=== PATIENT | male | born 1975 | race Caucasian/White ===

== ENCOUNTER 2022-04-17 05:44 | Outpatient (CLI) | payer MEDICAID ==
[~2022-04-17] VITALS: Ht 175.3 cm; Wt 87.1 kg
[2022-04-18] MEDS ORDERED: LISI1TAB48 PO (15:14)
[2022-04-18] MEDS ORDERED: SILD50TA PO (15:14)
== END 2022-04-18 15:16 | disposition home or self-care (01) ==
LOC: PREOP 05:44
PROVIDERS: ATTEND Surgery
DX: Z01.818 Encounter for other preprocedural examination (principal)

== ENCOUNTER 2022-04-24 10:02 | Day surgery (SDC) | payer MEDICAID ==
[~2022-04-24] VITALS: Ht 175 cm; Wt 87.1 kg
[~2022-04-24 10:02] MED LIST: LISI1TAB48 PO; SILD50TA PO
[2022-04-24] MEDS ORDERED: LACTATED RINGERS 1,000 ML IV STA (10:11)
[2022-04-24 10:15] VITALS: BP 150/101
[2022-04-24] MEDS ORDERED: PROPOFOL INJECTION 50 ML IV ONE ×2 (12:00→13:34)
[2022-04-24] MEDS ORDERED: LACTATED RINGERS 1,000 ML IV ONE (12:56)
--- NOTE | 2022-04-24 13:55 | Anesthesia-General Post-Op ---
MAC Patient Condition Mental Status/LOC: Same as Preop Cardiovascular: Satisfactory Nausea/Vomiting: Absent Respiratory: Satisfactory Pain: Controlled Complications: Absent Post Op Complications Complications None Follow Up Care/Instructions Patient Instructions None needed. Anesthesiology Discharge Order Discharge Order Patient is doing well, no complaints, stable vital signs, no apparent adverse anesthesia problems. No complications reported per nursing. LADY THOMPSON CRNA Apr 24, 2022 13:55
--- NOTE | 2022-04-24 13:56 | Discharge Inst-Simple/Standard ---
Discharge Inst-Standard Patient Instructions/Follow Up Plan of Care/Instructions/FU: Follow-up with Dr. Martines in 2 weeks Activity as Tolerated: Yes Discharge Diet: No Restrictions AMILCAR MARTINES DO Apr 24, 2022 13:56
[2022-04-24 13:58] VITALS: BP 122/65
[2022-04-24 14:03] VITALS: BP 120/65
[2022-04-24 14:05] VITALS: BP 150/91
--- NOTE | 2022-04-25 00:53 | OPERATIVE REPORT ---
DATE OF SERVICE: 04/24/2022 PREOPERATIVE DIAGNOSIS: Screening colonoscopy. POSTOPERATIVE DIAGNOSIS: Colon polyps. PROCEDURE: Colonoscopy with hot biopsy and polypectomy x5. SURGEON: Amilcar Martines DO. ANESTHESIA: Per ENTRY LEVEL BUSINESS ANALYST. ESTIMATED BLOOD LOSS: None. COMPLICATIONS: None. INDICATIONS: The patient is a 47-year-old male, needing screening colonoscopy. He understands the risks and benefits of procedure and wished to proceed. Consent was signed and in chart. DESCRIPTION OF PROCEDURE: The patient was taken to endoscopy suite, placed in left lateral recumbent position. Timeout was performed. Digital rectal exam was performed. No palpable polyps, masses, or ulcerations. Scope was inserted in the rectum and advanced all the way to cecum with minimal difficulty. Prep was adequate with irrigation and suction. Scope was slowly retracted back. No polyps, masses, or ulceration in the cecum. In the ascending colon just near the ileocecal valve, a small cluster of polyp was present. Hot biopsy polypectomy was performed and also some fulguration to the area. Scope was then continuously retracted back. No polyps, masses or ulcerations visualized within the remainder of the ascending and transverse colon along with the descending colon. In the sigmoid colon, three polyps were present, which hot biopsy polypectomies were performed. Scope was then continually retracted back at the rectosigmoid junction, there was another polyp was present, which hot biopsy polypectomy was performed. The scope was then continually retracted back into the rectum was also retroflexed noting no other pathology. Scope was returned to its normal position, slowly withdrawn until completely removed. The patient tolerated the procedure well without complications, taken to recovery room in stable condition. RECOMMENDATIONS: The patient will need repeat colonoscopy in 6 months to make sure the polyp in the ascending colon has been eradicated. He will follow up in 2 weeks, discussed pathology results and make plans. Job ID: [id number] DocumentID: [id number] Dictated Date: 04/24/2022 13:58:26 Metrology Technician Date: 04/25/2022 00:50:00 Dictated By: AMILCAR MARTINES DO
== END 2022-04-24 14:54 | disposition home or self-care (01) ==
LOC: ENDO 10:02
PROVIDERS: ATTEND Surgery
DX: Z12.11 Encounter for screening for malignant neoplasm of colon (principal); D12.2 Benign neoplasm of ascending colon; K63.5 Polyp of colon; Z28.310 Unvaccinated for COVID-19; Z85.828 Personal history of other malignant neoplasm of skin; F17.210 Nicotine dependence, cigarettes, uncomplicated
CPT/HCPCS: 88305

== ENCOUNTER 2022-11-28 05:37 | Outpatient (CLI) | payer MEDICAID ==
[~2022-11-28] VITALS: Ht 175.3 cm; Wt 87.1 kg
[2022-11-29] MEDS ORDERED: ATOR20TA66 PO (12:44)
== END 2022-11-29 12:53 | disposition home or self-care (01) ==
LOC: PREOP 05:37
PROVIDERS: ATTEND Surgery
DX: Z01.818 Encounter for other preprocedural examination (principal)

== ENCOUNTER 2022-12-11 09:01 | Day surgery (SDC) | payer MEDICAID ==
[~2022-12-11] VITALS: Ht 175.3 cm; Wt 87.1 kg
[~2022-12-11 09:01] MED LIST changes: +ATOR20TA66 PO
[2022-12-11] MEDS ORDERED: LACTATED RINGERS 1,000 ML IV STA (09:06)
[2022-12-11 09:18] VITALS: BP 135/91
[2022-12-11] MEDS ORDERED: PROPOFOL INJECTION 50 ML IV ONE ×2 (09:39→09:58)
--- NOTE | 2022-12-11 10:15 | Anesthesia-General Post-Op ---
MAC Patient Condition Mental Status/LOC: Same as Preop Cardiovascular: Satisfactory Nausea/Vomiting: Absent Respiratory: Satisfactory Pain: Controlled Complications: Absent Post Op Complications Complications None Follow Up Care/Instructions Patient Instructions None needed. Anesthesiology Discharge Order Discharge Order Patient is doing well, no complaints, stable vital signs, no apparent adverse anesthesia problems. No complications reported per nursing. LADY THOMPSON CRNA Dec 11, 2022 10:15
--- NOTE | 2022-12-11 10:18 | Progress Note-Post Operative ---
Post-Operative Progess Note Surgeon (s)/Rehabilitation Physician (s) Surgeon AMILCAR PARKER DO Rehabilitation Physician: None Pre-Operative Diagnosis History of Polyps Post-Operative Diagnosis Colon polyps Procedure & Operative Findings Date of Procedure 12/11/22 Procedure Performed/Findings Colonoscopy with hot biopsy polypectomyx6 Anesthesia Type Per BASS STRING WINDER Estimated Blood Loss Estimated blood loss (mL): None Specimens/Packing Specimens Removed Colon Polyps AMILCAR PARKER DO Dec 11, 2022 10:18
[2022-12-11 10:20] VITALS: BP 114/72
--- NOTE | 2022-12-11 10:21 | Discharge Inst-Simple/Standard ---
Discharge Inst-Standard Patient Instructions/Follow Up Plan of Care/Instructions/FU: Bobbi two weeks Activity as Tolerated: Yes Discharge Diet: Regular Diet AMILCAR PARKER DO Dec 11, 2022 10:21
[2022-12-11 10:25] VITALS: BP 121/77
[2022-12-11 10:30] VITALS: BP 124/79
[2022-12-11 10:50] VITALS: BP 120/82
--- NOTE | 2022-12-11 16:53 | OPERATIVE REPORT ---
DATE OF SERVICE: 12/11/2022 PREOPERATIVE DIAGNOSIS: History of polyps. POSTOPERATIVE DIAGNOSES: History of colon polyps. PROCEDURE: Colonoscopy with hot biopsy polypectomy x6. SURGEON: Amilcar Martines DO ANESTHESIA: Per INDUSTRIAL FABRIC CUTTER. ESTIMATED BLOOD LOSS: None. COMPLICATIONS: None. INDICATIONS: The patient is a 47-year-old male with history of polyps. He understands risks and benefits of procedure and wished to proceed. Consent was signed in chart. DESCRIPTION OF PROCEDURE: The patient was taken to endoscopy suite, placed in left lateral recumbent position. Timeout was performed. Digital rectal exam was performed. No palpable polyps, masses or ulcerations. Scope was inserted in the rectum, advanced all the way to the cecum with minimal difficulty. Prep was adequate. Scope was slowly retracted back. No polyps, masses or ulcerations in the cecum. In the ileocecal valve, 4 polyps were present in this area. Hot biopsy polypectomy was performed. Scope was then continuously retracted back. No polyps, masses or ulcerations in the ascending, transverse, or descending colon. The sigmoid colon had 2 small polyps, which hot biopsy polypectomy was performed. Scope was then continuously retracted back into the rectum where it was also retroflexed, noting no other pathology. Scope was returned to its normal position, slowly withdrawn until completely removed. The patient tolerated the procedure well without complications, taken to recovery room in stable condition. RECOMMENDATIONS: The patient will have repeat colonoscopy in 3 years. Any issues before that, he will be seen at that time. He will follow up in 2 weeks to discuss pathology results. Job ID: [id number] DocumentID: [id number] Dictated Date: 12/11/2022 10:19:53 Safety Net Maker Date: 12/11/2022 16:51:00 Dictated By: AMILCAR MARTINES DO
== END 2022-12-11 10:53 | disposition home or self-care (01) ==
LOC: ENDO 09:01
PROVIDERS: ATTEND Surgery
DX: D12.0 Benign neoplasm of cecum (principal); K63.5 Polyp of colon; F17.210 Nicotine dependence, cigarettes, uncomplicated; Z85.828 Personal history of other malignant neoplasm of skin; Z28.310 Unvaccinated for COVID-19
CPT/HCPCS: 88305

== ENCOUNTER 2023-04-15 14:26 | Emergency (ER) | payer MEDICAID ==
[~2023-04-15] VITALS: Ht 175 cm; Wt 91.0 kg
[2023-04-15 14:39] LABS: BASOPHILS # (AUTO) 0.1 10^3/uL (0.0-0.1); BASOPHILS % (AUTO) 1 % (0-10); EOSINOPHILS # (AUTO) 0.4 10^3/uL (0.0-0.3); EOSINOPHILS % (AUTO) 4 % (0-10); HEMATOCRIT 44 % (40-54); HEMOGLOBIN 14.7 g/dL (13.3-17.7); LYMPHOCYTES # (AUTO) 1.5 10^3/uL (1.0-4.0); LYMPHOCYTES % (AUTO) 15 % (12-44); MEAN CORPUSCULAR HEMOGLOBIN 30 pg (25-34); MEAN CORPUSCULAR HGB CONC 33 g/dL (32-36); MEAN CORPUSCULAR VOLUME 91 fL (80-99); MEAN PLATELET VOLUME 10.3 fL (9.0-12.2); MONOCYTES % (AUTO) 10 % (0-12); NEUTROPHILS # (AUTO) 6.7 10^3/uL (1.8-7.8); NEUTROPHILS % (AUTO) 68 % (42-75); PLATELET COUNT 292 10^3/uL (130-400); WHITE BLOOD COUNT 9.9 10^3/uL (4.3-11.0)
--- NOTE | 2023-04-15 14:51 | Diagnostic Imaging Report ---
INDICATION: Worsening chest pain and dyspnea. TECHNIQUE: A single AP view of the chest was obtained. COMPARISON: No previous study is available for comparison at this time. FINDINGS: The heart size and pulmonary vasculature are within normal limits, and the lungs are clear bilaterally. IMPRESSION: Unremarkable chest. Dictated by: Dictated on workstation # [id number]
[2023-04-15 14:56] LABS: ALBUMIN 4.2 GM/DL (3.2-4.5); CHLORIDE 98 MMOL/L (98-107); POTASSIUM 3.1 MMOL/L (3.6-5.0); SODIUM 137 MMOL/L (135-145)
[2023-04-15 14:57] LABS: CALCIUM 9.1 MG/DL (8.5-10.1)
[2023-04-15 14:58] LABS: GLUCOSE 141 MG/DL (70-105)
[2023-04-15] MEDS ORDERED: morphine INJ 10 MG/ML 1ML (SYR OR VIAL) IVP STA (14:58)
[2023-04-15 14:59] LABS: TOTAL PROTEIN 7.5 GM/DL (6.4-8.2)
[2023-04-15 15:00] LABS: BILIRUBIN,TOTAL 0.4 MG/DL (0.1-1.0); CARBON DIOXIDE 28 MMOL/L (21-32)
[2023-04-15 15:02] LABS: ALKALINE PHOSPHATASE 65 U/L (40-136); CREATININE SERUM 1.78 MG/DL (0.60-1.30); GFR ESTIMATED 47; INR 0.9 (0.8-1.4)
[2023-04-15 15:03] LABS: BUN/CREATININE RATIO 13
--- NOTE | 2023-04-15 15:04 | ED Chest Pain ---
General Chief Complaint: Chest Pain Stated Complaint: CHEST PAINS Nursing Triage Note: PT TO RM 9 BY [facility] FROM [facility] WITH C/O CP X3 DAYS AND WORSENED TODAY WHEN CUTTING WOOD. PT STATES HE ALSO GOT SOB AND SWEATING Source: patient Exam Limitations: no limitations (SHELLEY GARNER APRN) History of Present Illness Date Seen by Provider: Apr 15, 2023 Time Seen by Provider: 14:28 Initial Comments 48-year-old male presents to the ER via EMS from [facility] walk-in clinic with complaint of chest pain for the last 3 days. He reports that it has been a constant ache. States that he woke up this morning without chest pain, that it started around 10 AM when he was cutting wood. He states that the other episodes of chest pain were not related to physical exertion. He complains of the pain in his left lower chest. Denies any radiation of the pain. Does report sweating with the pain. Denies shortness of air or nausea or vomiting with the pain. Past medical history includes hypertension. He currently takes lisinopril/hydrochlorothiazide, and amlodipine. He was started on Wellbutrin 3 days ago for smoking cessation. States that the chest pain started when he started the Wellbutrin. (SHELLEY GARNER APRN) Allergies and Home Medications Allergies Coded Allergies: No Known Drug Allergies (Unverified , 04/18/22) Patient Home Medication List Home Medication List Reviewed: Yes (SHELLEY GARNER APRN) Atorvastatin Calcium (Atorvastatin Calcium) 20 Mg Tablet, 20 MG PO DAILY, (Reported) Entered as Reported by: AMPARO CLAY on 11/29/22 1244 Lisinopril/Hydrochlorothiazide (Lisinopril-Hctz 20-25 mg Tab) 20 Mg-25 Mg Tablet, 1 EACH PO DAILY, (Reported) Entered as Reported by: RJ VÁZQUEZ on 04/18/22 151 Sildenafil Citrate (Viagra) 50 Mg Tablet, 50 MG PO UD, (Reported) Entered as Reported by: RJ VÁZQUEZ on 04/18/22 151 Review of Systems Review of Systems Constitutional: see HPI (SHELLEY GARNER APRN) Past Oonufgp-Byjbsn-Jaghsb Hx Patient Social History Tobacco Use?: Yes Tobacco type used: Cigarettes Substance use?: Yes Substance type: Marijuana Alcohol Use?: No Pt feels they are or have been: No (PATSYSHELLEY CARLSON APRN) Immunizations Up To Date Influenza Vaccine Up-to-Date: No; Not Current First/Initial COVID19 Vaccinat: NO Second COVID19 Vaccination Cristobal: NO Third COVID19 Vaccination Date: NO (PATSYSHELLEY CARLSON APRN) Seasonal Allergies Seasonal Allergies: Yes (PATSYSHELLEY CARLSON APRN) Past Medical History Surgery/Hospitalization HX: HTN 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 Surgeries: Yes (BX NOSE SQUAMOUS CELL) Respiratory: No Cardiac: Yes High Cholesterol, Hypertension Neurological: No Genitourinary: No Gastrointestinal: Yes Polyps Musculoskeletal: No Endocrine: No HEENT: No Cancer: Yes (NASAL ) What Type of Treatment Did You: Radiation, Surgical Intervention Psychosocial: No Integumentary: Yes Psoriasis Blood Disorders: No (SHELLEY GARNER APRN) Physical Exam Vital Signs Vital Signs - First Documented 04/15/23 16:43 Pulse 76 Resp 16 B/P (MAP) 115/70 Pulse Ox 98 (RANI VALERIO MD) Vital Signs Capillary Refill : (PATSYSHELLEY CARLSON APRN) Height, Weight, BMI Height: '" Weight: lbs. oz. kg; 29.00 BMI Method: General Appearance: No Apparent Distress, WD/WN Neck: Normal Inspection, Supple Respiratory: Chest Non Tender, Lungs Clear, Normal Breath Sounds, No Accessory Muscle Use, No Respiratory Distress Cardiovascular: Regular Rate, Rhythm Extremity: Normal Inspection, Normal Range of Motion Neurologic/Psychiatric: Alert, No Motor/Sensory Deficits Skin: Normal Color, Warm/Dry (PATSYSHELLEY CARLSON APRN) Progress/Results/Core Measures Results/Orders Lab Results Laboratory Tests Test 04/15/23 14:30 Range/Units White Blood Count 9.9 4.3-11.0 10^3/uL Red Blood Count 4.83 4.30-5.52 10^6/uL Hemoglobin 14.7 13.3-17.7 g/dL Hematocrit 44 40-54 % Mean Corpuscular Volume 91 80-99 fL Mean Corpuscular Hemoglobin 30 25-34 pg Mean Corpuscular Hemoglobin Concent 33 32-36 g/dL Red Cell Distribution Width 12.7 10.0-14.5 % Platelet Count 292 130-400 10^3/uL Mean Platelet Volume 10.3 9.0-12.2 fL Immature Granulocyte % (Auto) 1 % Neutrophils (%) (Auto) 68 42-75 % Lymphocytes (%) (Auto) 15 12-44 % Monocytes (%) (Auto) 10 0-12 % Eosinophils (%) (Auto) 4 0-10 % Basophils (%) (Auto) 1 0-10 % Neutrophils # (Auto) 6.7 1.8-7.8 10^3/uL Lymphocytes # (Auto) 1.5 1.0-4.0 10^3/uL Monocytes # (Auto) 1.0 0.0-1.0 10^3/uL Eosinophils # (Auto) 0.4 H 0.0-0.3 10^3/uL Basophils # (Auto) 0.1 0.0-0.1 10^3/uL Immature Granulocyte # (Auto) 0.1 0.0-0.1 10^3/uL Prothrombin Time 13.0 12.2-14.7 SEC INR Comment 0.9 0.8-1.4 Activated Partial Thromboplast Time 29 24-35 SEC Sodium Level 137 135-145 MMOL/L Potassium Level 3.1 L 3.6-5.0 MMOL/L Chloride Level 98 98-107 MMOL/L Carbon Dioxide Level 28 21-32 MMOL/L Anion Gap 11 5-14 MMOL/L Blood Urea Nitrogen 24 H 7-18 MG/DL Creatinine 1.78 H 0.60-1.30 MG/DL Estimat Glomerular Filtration Rate 47 BUN/Creatinine Ratio 13 Glucose Level 141 H 70-105 MG/DL Calcium Level 9.1 8.5-10.1 MG/DL Corrected Calcium 8.9 8.5-10.1 MG/DL Magnesium Level 2.0 1.6-2.4 MG/DL Total Bilirubin 0.4 0.1-1.0 MG/DL Aspartate Amino Transf (AST/SGOT) 17 5-34 U/L Alanine Aminotransferase (ALT/SGPT) 15 0-55 U/L Alkaline Phosphatase 65 40-136 U/L Troponin I < 0.028 <0.028 NG/ML Total Protein 7.5 6.4-8.2 GM/DL Albumin 4.2 3.2-4.5 GM/DL (RANI VALERIO MD) Vital Signs/I&O 04/15/23 16:43 Pulse 76 Resp 16 B/P (MAP) 115/70 Pulse Ox 98 04/15/23 23:59 Intake Total 1500 ml Balance 1500 ml (RANI VALERIO MD) Progress Progress Note : Progress Note Patient seen and evaluated, resting comfortably in bed, no acute distress. Based on exam and symptoms, cardiac workup initiated including CBC, CMP, troponin, magnesium, coags, EKG, chest x-ray. Morphine ordered for pain. Patient already had 4 baby aspirins which were given by [facility]. 1529 Labs, EKG, and chest x-ray reviewed. CBC grossly normal. CMP shows de creased potassium 3.1. BUN elevated 24, creatinine elevated 1.78, GFR decreased 47, glucose slightly elevated 141. Magnesium normal. Troponin negative. This troponin was drawn approximately 4 hours after start of chest pain. Coags negative. Chest x-ray shows no acute cardiopulmonary process. Results discussed with patient. Patient denies known history of kidney disease. 1 L of IV fluids ordered. Patient already received 500 mL IV fluids by EMS. Decreased kidney function could be related to dehydration. Chest pain could be related to dehydration or Wellbutrin. Adverse reactions of Wellbutrin include chest pain, sweating, dizziness. Potassium ordered for decreased potassium as well. 1630 IV fluids completed. Patient is stable for discharge. Discharge instructions and return precautions provided. Instructed to follow-up with primary care provider this week for a redraw of his kidney function and to also discuss his Wellbutrin which may be the cause of his symptoms. (SHELLEY GARNER APRN) Initial ECG Impression Date: Apr 15, 2023 Initial ECG Impression Time: 14:34 Initial ECG Rate: 86 Initial ECG Rhythm: Normal Sinus Initial ECG Intervals: Normal Initial ECG Impression: Nonspecific Changes Initial ECG Comparisson: No Previous ECG Available Comment Q wave in lead II, 3, aVF, T wave inversion in lead III, and lead aVF, no ST elevation or depression. EKG reviewed by Dr. Davenport as well, he did not find evidence of STEMI. (SHELLEY GARNER APRN) Diagnostic Imaging Diagonstic Imaging: Xray Plain Films/CT/US/NM/MRI: chest Comments [facility] [place], [place] NAME: FRIEND,GIRMA [facility] REC#: [id number] PT STATUS: REG ER : 1975 PHYSICIAN: SHELLEY GARNER APRN ADMIT DATE: 04/15/23/ER Draft Date of Exam:04/15/23 CHEST 1 VIEW, AP/PA ONLY INDICATION: Worsening chest pain and dyspnea. TECHNIQUE: A single AP view of the chest was obtained. COMPARISON: No previous study is available for comparison at this time. FINDINGS: The heart size and pulmonary vasculature are within normal limits, and the lungs are clear bilaterally. IMPRESSION: Unremarkable chest. Dictated on workstation # [id number] Dict: 04/15/23 1448 Trans: 04/15/23 1451 [id number] Interpreted by: CONCEPCIÓN MEDINA MD Electronically signed by: (SHELLEY GARNER APRN) Departure Impression Primary Impression: Chest pain Additional Impressions: Dehydration Hypokalemia Disposition: 01 HOME, SELF-CARE Condition: Stable Departure-Patient Inst. Decision time for Depature: 16:30 (SHELLEY GARNER APRN) Referrals: [facility] [place]) Primary Care Physician Patient Instructions: Chest Pain That Is Not Caused by the Heart (DC) Add. Discharge Instructions: Increase potassium in your diet. Make sure you are drinking plenty of water. Follow-up with your primary care provider this week, call them tomorrow to schedule a follow-up appointment. They need to reevaluate your kidney function. Discuss with your primary care provider your Wellbutrin, this may be the cause of your symptoms. Return for severe chest pain, severe shortness of breath, or any other new, concerning, or worsening symptoms. All discharge instructions reviewed with patient and/or family. Voiced un derstanding. ATTENDING PHYSICIAN NOTE: I was physically present as attending physician in the emergency department during the care of this patient, but I was not directly involved in the decision making or delivery of care for this patient. (RANI VALERIO MD) Copy Copies To 1: [facility]/SHELLEY [place] APRN Apr 15, 2023 15:04 RANI VALERIO MD Apr 16, 2023 13:42
[2023-04-15 15:05] LABS: ALANINE AMINOTRANSFERASE 15 U/L (0-55)
[2023-04-15] MEDS ORDERED: NS IV 1000 ML 1,000 ML IV SCH (15:30)
[2023-04-15] MEDS ORDERED: POTASSIUM CHLORIDE 20 MEQ TABLET PO ONE (15:45)
[2023-04-15 16:43] VITALS: BP 115/70
== END 2023-04-15 16:43 | disposition home or self-care (01) ==
LOC: EDUNIT# 14:26 → ER 14:27
DX: R07.89 Other chest pain (principal); E87.6 Hypokalemia; E86.0 Dehydration; I10 Essential (primary) hypertension; F17.210 Nicotine dependence, cigarettes, uncomplicated; Z79.899 Other long term (current) drug therapy
CPT/HCPCS: 36415; 71045; 80053; 83735; 84484; 85025; 85610; 85730; 93005; 93041